=== PATIENT | male | born 2005 | race Caucasian/White ===

== ENCOUNTER 2023-12-16 07:41 | Emergency (ER) | payer OTHER ==
[~2023-12-16] VITALS: Ht 175.3 cm; Wt 72.7 kg
[2023-12-16 07:50] VITALS: TEMP 97.8
[2023-12-16 08:56] VITALS: O2SAT 98
[2023-12-16 09:00] VITALS: BP 135/68
[2023-12-16] MEDS: ACETAMINOPHEN TAB 650MG DOSE (2X325MG) PO ONE (09:18)
== END 2023-12-16 09:33 | disposition home or self-care (01) ==
LOC: EDBD 07:41 → M ED 07:41
DX: S16.1XXA Strain of muscle, fascia and tendon at neck level, initial encounter (principal); V49.50XA Passenger injured in collision with unspecified motor vehicles in traffic accident, initial encounter; Y92.9 Unspecified place or not applicable; Y93.9 Activity, unspecified; Y99.9 Unspecified external cause status; F12.10 Cannabis abuse, uncomplicated